=== PATIENT | male | born 1965 ===

== ENCOUNTER 2016-06-11 21:14 | Emergency (ER) | payer OTHER ==
[2016-06-11 21:51] VITALS: BP 160/99
== END 2016-06-12 00:45 | disposition left against medical advice (07) ==
LOC: ED 21:14
DX: M54.2 Cervicalgia (principal); R51 Headache; V89.2XXA Person injured in unspecified motor-vehicle accident, traffic, initial encounter; Y92.488 Other paved roadways as the place of occurrence of the external cause; Y93.89 Activity, other specified; Y99.9 Unspecified external cause status; Z53.21 Procedure and treatment not carried out due to patient leaving prior to being seen by health care provider